=== PATIENT | male | born 1940 | race Caucasian/White ===

== ENCOUNTER 2017-06-28 10:46 | Day surgery (SDC) | payer MEDICARE, BC ==
[2017-06-28] MEDS ORDERED: PROPOFOL 500 MG/50 ML EMU IV ONE (10:56)
[2017-06-28] MEDS ORDERED: ONDANSETRON HCL 4 MG/2 ML SOL ONE (10:56)
[2017-06-28] MEDS ORDERED: MIDAZOLAM 2 MG/2 ML SOL ONE (10:56)
[2017-06-28] MEDS ORDERED: LIDOCAINE HCL 1% MPF SOL ONE ×2 (10:56→11:42)
[2017-06-28] MEDS ORDERED: FENTANYL 100MCG/2ML SOL ONE (10:57)
[2017-06-28] MEDS ORDERED: BUPIVACAINE LIPOSOME 20 ML SUS ONE (11:42)
[2017-06-28] MEDS ORDERED: BUPIVACAINE HCL 0.5% MPF 10 ML SOL ONE (11:43)
[2017-06-28] MEDS ORDERED: PROPOFOL 10 MG/ML EMU IV ONE (13:29)
[2017-06-28 15:35] VITALS: RESP 20; TEMP 97.3
[2017-06-28 15:38] VITALS: BP 140/81; PULSE 61; O2SAT 98
== END 2017-06-28 16:05 | disposition home or self-care (01) | DRG 566 ==
LOC: SURG 10:46
PROVIDERS: ATTEND Podiatrist
DX: M20.12 Hallux valgus (acquired), left foot (principal); M20.42 Other hammer toe(s) (acquired), left foot; M21.612 Bunion of left foot
CPT/HCPCS: J2250; J2405; J3010; A6402; J2001; J2704

== ENCOUNTER 2018-05-10 08:07 | Day surgery (SDC) | payer MEDICARE, BC ==
[~2018-05-10 08:07] MED LIST: LIDOCAINE HCL 1% MPF 30 SOL ONE; PROPOFOL 500 MG/50 ML EMU IV ONE
[2018-05-10 10:19] VITALS: RESP 16
[2018-05-10 10:27] VITALS: BP 124/75
[2018-05-10 10:47] VITALS: PULSE 45; TEMP 96.8; O2SAT 99
== END 2018-05-10 11:07 | disposition home or self-care (01) | DRG 392 ==
LOC: SURG 08:07
PROVIDERS: ATTEND Internal Medicine Gastroenterology
DX: R13.10 Dysphagia, unspecified (principal); Q39.9 Congenital malformation of esophagus, unspecified; K21.9 Gastro-esophageal reflux disease without esophagitis; R07.89 Other chest pain; L53.8 Other specified erythematous conditions; K22.2 Esophageal obstruction; K44.9 Diaphragmatic hernia without obstruction or gangrene; K31.7 Polyp of stomach and duodenum
CPT/HCPCS: J2001; J2704

== ENCOUNTER 2018-07-05 08:00 | Day surgery (SDC) | payer MEDICARE, BC ==
[~2018-07-05 08:00] MED LIST changes: -LIDOCAINE HCL 1% MPF 30 SOL ONE
[2018-07-05 09:55] VITALS: TEMP 97.9
[2018-07-05 10:13] VITALS: RESP 20; O2SAT 98
[2018-07-05 10:17] VITALS: BP 114/62; PULSE 56
== END 2018-07-05 10:41 | disposition home or self-care (01) | DRG 153 ==
LOC: SURG 08:00
PROVIDERS: ATTEND Internal Medicine Gastroenterology
DX: J11.1 Influenza due to unidentified influenza virus with other respiratory manifestations (principal); K22.10 Ulcer of esophagus without bleeding; K21.9 Gastro-esophageal reflux disease without esophagitis; K22.2 Esophageal obstruction; K44.9 Diaphragmatic hernia without obstruction or gangrene; K31.7 Polyp of stomach and duodenum; L53.8 Other specified erythematous conditions
CPT/HCPCS: J2704

== ENCOUNTER 2018-08-18 16:22 | Emergency (ER) | payer MEDICARE, BC ==
[2018-08-18 16:30] VITALS: BP 131/76; PULSE 55; RESP 16; TEMP 99.3; O2SAT 95
== END 2018-08-18 17:02 | disposition home or self-care (01) | DRG 696 ==
LOC: ED 16:22
DX: R33.8 Other retention of urine (principal); Z98.890 Other specified postprocedural states
CPT/HCPCS: 51702; 99282